=== PATIENT | male | born 1980 ===

== ENCOUNTER 2016-05-24 20:14 | Emergency (ER) | payer OTHER ==
--- NOTE | ~2016-05-24 | ER ---
PATIENT'S NAME: JANEEN PAULINO [facility] AGE: 36 Y [address] ROOM: [place] [id number] LOCATION: [facility] ADMIT DATE: 05/24/2016 ER/Outpatient Report DISCHARGE DATE: 05/24/2016 FAMILY PHYSICIAN: Kael Sosa MD ATTENDING PHYSICIAN: Sidney Gomez CHIEF COMPLAINT: Rash and pain in the right arm. HISTORY OF PRESENT ILLNESS: The patient states that several days ago, he got a splinter in his right index finger from a cabinet at home. He has been removing portions of splinter for the last several days and the area has become red and this evening he noticed some red streaking on the arm and that is why he came in. He denies any pain, but does have some discomfort with the area. He denies any fevers, chills, nausea, vomiting, or other acute conditions. Denies any other major medical conditions. PAST MEDICAL HISTORY: Documented on the record and reviewed by me. SOCIAL HISTORY: Documented on the record and reviewed by me. MEDICATIONS: Documented on the record and reviewed by me. ALLERGIES: DOCUMENTED ON THE RECORD AND REVIEWED BY ME. REVIEW OF SYSTEMS: All systems reviewed and negative except as noted in the HPI. PHYSICAL EXAMINATION: VITAL SIGNS: Blood pressure 137/85, pulse 81, respiratory rate is 16, temperature 98.0, and SpO2 is 95% on room air. Pain is rated at 4/10. GENERAL: Age-appropriate male, in no obvious pain or distress, resting comfortably on exam table. NEUROLOGIC: Awake and alert. GCS 15. No focal deficits or asymmetry. HEENT: Normocephalic and atraumatic. Eyes are PERRL. Oropharynx is clear. NECK: Supple. Trachea is midline. CHEST: Heart has regular rate and rhythm with no murmurs. Lungs are clear to auscultation bilaterally with no rhonchi, wheezes, or rales. ABDOMEN: Benign. BACK: Nontender. PATIENT'S NAME: JANEEN PAULINO [facility] AGE: 36 Y [address] ROOM: [place] [id number] LOCATION: [facility] ADMIT DATE: 05/24/2016 ER/Outpatient Report DISCHARGE DATE: 05/24/2016 FAMILY PHYSICIAN: Kael Sosa MD ATTENDING PHYSICIAN: Sidney Gomez EXTREMITIES: Warm and well perfused. No obvious abnormalities or deformities. SKIN: The skin is notable for an area of erythema over the proximal phalanx of the right index finger with area of necrosis in the center. No fluctuance or purulence appreciated. It is not circumferential. There is an area of red streaking over the dorsum of the hand up through the forearm and onto the biceps consistent with lymphangitis. It is nontender and not warm. The finger has full, active, and passive range of motion with no pain appreciated. LABS AND X-RAYS: None. IMPRESSION: Cellulitis with lymphangitis. EMERGENCY DEPARTMENT COURSE: The patient was seen and evaluated as above. Clear source in etiology. The patient is not septic. No labs warranted. We gave him a dose of IV clindamycin here and we will start him on oral clindamycin at home. He should follow up in 48 hours if not improving and return immediately if worse. All questions were answered and the patient was discharged in good condition. MD BUCKY GUSMAN/modl /[id number] d: 05/25/16 0255 t: 06/05/16 0844, OUTPATIENT REPORT
== END 2016-05-24 21:15 | disposition disaster alternative care site (69) ==
LOC: GMED 20:14
DX: L03.113 Cellulitis of right upper limb (principal); L03.011 Cellulitis of right finger; Z88.1 Allergy status to other antibiotic agents